=== PATIENT | female | born 1955 | race Caucasian/White ===

== ENCOUNTER → 2024-01-16 | Outpatient (CLI) | payer MEDICARE, SELFPAY ==
--- NOTE | 2024-01-16 16:41 | CT_ITS ---
STUDY: CT ABDOMEN AND PELVIS WITHOUT CONTRAST REASON FOR EXAM: Female, 68 years old. URETERAL STONE, FLANK PAIN. Known kidney stones. Recurrent UTIs. RADIATION DOSAGE (If Supplied By Facility): CTDIvol = ( 23.6 ) mGy, DLP = ( 1184.98 ) mGycm TECHNIQUE: Transaxial images were obtained from the dome of the diaphragm to the symphysis pubis without oral contrast, and without intravenous contrast. Sagittal and coronal images were reconstructed. Individualized dose optimization techniques were used for this CT. COMPARISON: None. FINDINGS: Calcified granuloma in the right lower lobe. The visualized portions of the heart are within normal limits. There is decreased attenuation of the liver consistent with steatosis. Normal gallbladder and extrahepatic biliary system. Normal spleen. Normal pancreas. Normal bilateral adrenal glands. There is a 3.8 cm x 3 cm cyst in the upper midportion of the right kidney. Normal left kidney. There is an 8.3 mm calculus in the distal portion of the left ureter just proximal to the left ureterovesical junction. Normal visualized stomach. Normal small intestine. Normal colon. There are surgical clips in the region of the appendix consistent with a prior appendectomy. There is scattered atherosclerotic calcification of the abdominal aorta, without a demonstrated aneurysm. Normal inferior vena cava. Normal retroperitoneum. Normal urinary bladder. Calcified fibroid uterus. Normal abdominal wall. Disc space narrowing and disc degeneration at the L5-S1 level. Calcified right lower lobe granuloma. CT/Abdomen/Pelvis without Cont IMPRESSION: Fatty infiltration of the liver. Right renal cyst. 8.3 mm calculus in the distal portion of the left ureter just proximal to the ureterovesical junction. Electronically Signed: Morgan Rod MD at 10:27 EDT ,
== END | disposition home or self-care (01) ==
PROVIDERS: Referring Provider Urology; Visit Provider Urology
DX: R10.9 Unspecified abdominal pain (principal); N20.1 Calculus of ureter
CPT/HCPCS: 74176

== ENCOUNTER 2024-02-22 08:45 | Day surgery (SDC) | payer MEDICARE, SELFPAY ==
--- NOTE | 2024-02-22 | CALC_PTH ---
PATIENT: STEFANY VAZQUEZ LOC: [facility] U#:[id number] AGE/SX: 68/F ROOM: RE02/22/[address]: Dr. Maricruz Plummer MD : 1955 BED: DIS: 02/22/2024 SPEC #: [id number] RECD: 02/22/24 11:08 STATUS: MACHO JOSE #: [id number] VANESSA: 02/22/24 00:[address]: Maricruz Plummer DEPT: SURGICAL PATHOLOGY RECD BY: Isabel Thompson ENTERED: 02/22/24 11:17 SP TYPE: Calculi OTHR DR: Odalys Arenas, INDUSTRIAL TRAINING SPECIALIST-Aiden Tissues: CALCULI Procedures: Surgery Specimen Level I HEADER OPERATION: Left ureteroscopy, laser lithotripsy, stone basket extraction PRE-OP DIAGNOSIS: Ureteral calculi TISSUE SUBMITTED: Left ureteral calculi GROSS DIAGNOSIS Fragments of stone clinically left ureteral calculi. CHERYL/ 02/22/2024 COMMENT The calculi are submitted in its entirety for chemical stone analysis. The results from this study will be reported separately. GROSS DESCRIPTION Received without fixative labeled with the patient's name and designated Left ureteral calculi. The specimen consists of multiple fragments of brown stone measuring in aggregate 0.7 x 0.2 x 0.2 cm. The entire specimen is submitted for stone analysis. CHERYL/ 02/22/2024 CPT: 69878
--- NOTE | 2024-02-22 09:06 | PCM.PRE.AN2 ---
ASA Classification* ASA Classification ASA Classification: 2 Assessment & Plan Anesthesia* Anesthesia Assessment Anesthesia Assessment: Discussed sedation and/or anesthesia options, risks, benefits, and alternatives with patient/parents/legal guardian/POA. Questions invited. The patient/parents/legal guardian/POA seems to understand and agrees to proceed with anesthesia plan. Reviewed the physical assessment, medical history, allergy history and patient home medications list prior to surgery/procedure/anesthetic and documented any changes. Performed airway and anesthesia risk assessments. Anesthesia Type Anesthesia Type: General Anesthesia Focused Assessment* Airway Assessment Mouth opens: >3 cm Mallampati Score: II Focused Labs Anesthesia Preop lab: CBC CHEMISTRY COAG Pre-Assessment Diagnosis/Proposed Procedure Planned Operative Procedure(s): (L) Cysto, Left ureteroscopy, laser litho, stone basket extraction, left ureteral stent Anesthesia History Anesthesia History - outside event sales specialist: Anesthesia History - outside event sales specialist Hx Hospitalization No 02/08/24 15:15 Any Problems With Anesthesia No 02/08/24 15:15 Cholinesterase deficiency No 02/08/24 15:15 You/Your Family Experience No 02/08/24 15:15 fever (hyperthermia) with Relationship Recent Exposure to Contagious Disease Does patient have nerve No 02/08/24 15:15 stimulator Patient instructed to have device shut off --Does patient have Pacemaker or ICD? When Was Last Pacemaker Check QUESTION #4 FULL TEXT: You/Your Family Experience fever (hyperthermia) with Anesthesia Last Oral Intake Last Oral intake: Last Oral Intake NPO since Meds taken in AM with sips of water? Meds patient instructed to take am of surgery PONV PONV - outside event sales specialist: PONV - outside event sales specialist Female Yes 02/08/24 15:15 HX of Motion Sickness No 02/08/24 15:15 HX of N/V After Surgery No 02/08/24 15:15 Non-Smoker Yes 02/08/24 15:15 Duration of Surgery greater No 02/08/24 15:15 than 60 minutes Number of Risk Factors 2 02/08/24 15:15 PONV Score Moderate Risk 02/08/24 15:15 Respiratory Assessment Respiratory Assessment - outside event sales specialist: Respiratory Tract Infection Hx - outside event sales specialist Hx Respiratory Tract Infection No 02/08/24 15:15 STOP Sleep Apnea STOP Sleep Apnea - outside event sales specialist: STOP Sleep Apnea - outside event sales specialist Hx Hypertension No 02/08/24 15:15 Hx Sleep Apnea No 02/08/24 15:15 CPAP BIPAP Do you snore loudly (louder No 02/08/24 15:15 than talking or can be heard Do you often feel tired/ No 02/08/24 15:15 fatigued/ sleepy during daytime? Has anyone observed you stop No 02/08/24 15:15 breathing during sleep? STOP Results Negative 02/08/24 15:15 QUESTION #5 FULL TEXT : Do you snore loudly (louder than talking or can be heard through closed doors)? 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 Specify any problems Hx of Preganancy in last 3 No 02/08/24 15:15 Months Nurse Filling Out Transfusion [facility] 02/08/24 15:15 & Questions: Date: 02/08/24 02/08/24 15:15 Time: 15:22 02/08/24 15:15 Patient unable to answer at this time (ie. confused, unrespo /Reproduction History /Reproductive History - outside event sales specialist: /Reproductive Hx- outside event sales specialist Hx Now No 02/08/24 15:15 Gestational Age (in weeks): EDC: Hx Hx Para Hx Section SAB Active Medications Active Medications: Current Medications Generic Name Dose Route Start Last Admin Trade Name Freq PRN Reason Stop Dose Admin Cefazolin Sodium 2 gm/ Sodium 110 mls @ 150 mls/hr 02/22/24 10:50 Chloride IV 02/22/24 11:33 PREOP ONE Lactated Ringer's 1,000 mls @ 15 mls/hr 02/22/24 09:15 IV .Q48H RADN PFSH Medical History Thyroid disease Arthritis High cholesterol Former smoker History of edema Home Medications ?Medication ?Instructions ?Recorded ?Last Taken ?Type Lactobacillus acidophilus 10 100 mmu cells PO DAILY 02/08/24 Unknown History billion cell capsule (Probiotic) antiarthritic combination no.2 900 900 mg PO DAILY 02/08/24 Unknown History mg tablet (glucosamine-chondroitin) atorvastatin 20 mg tablet 20 mg PO DAILY 02/08/24 Unknown History nlrgxvn-sqxbfresb-bmml 333 mg-133 1 tab PO DAILY 02/08/24 Unknown History mg-8.3 mg tablet cholecalciferol (vitamin D3) 125 125 mcg PO DAILY 02/08/24 Unknown History mcg (5,000 unit) tablet (Vitamin D3) fexofenadine 180 mg tablet 180 mg PO DAILY 02/08/24 Unknown History (Tiera Allergy) levothyroxine 125 mcg tablet 125 mcg PO DAILY 02/08/24 Unknown History omega 3 350 mg-dha 235 mg-epa 90 2 cap PO DAILY 02/08/24 Unknown History mg-fish oil 597 mg capsule,delay rel ([place]-3) Allergy/AdvReac Type Severity Reaction Status Date / Time No Known Allergies Allergy Verified 02/08/24 15:09 Surgical History History of bilateral cataract extraction History of tubal ligation History of appendectomy History of knee replacement procedure of right knee Social History Smoking Status: Former smoker Review of Systems (Anesthesia) ROS Narrative System reviewed and no additional complaints, except as documented.
[2024-02-22 09:21] VITALS: BP 155/80; PULSE 70; RESP 16; TEMP 36.3; O2SAT 100; BMI 41.5
[2024-02-22] MEDS: Lactated Ringers 1,000 ML 15 ML IV (09:24)
[2024-02-22 09:25] LABS: Hematocrit 39.4 % (37-47); Hemoglobin 13.3 g/dL (12.0-15.0); Mean Corp Hgb Conc 33.8 g/dL (32-36); Mean Corpuscular Hgb 31.4 pg (27.0-32.0); Mean Corpuscular Volume 92.9 fL (81-99); Platelet Count 250 K/mm3 (150-450); Red Blood Count 4.24 M/mm3 (4.2-5.4); White Blood Count 4.6 K/mm3 (4.4-11.0)
--- NOTE | 2024-02-22 09:57 | EX.PCM.DISCH ---
Discharge Instructions Diet Discharge Diet: No restrictions Activity Discharge Activity: Return to Normal Activity Dressing / Incision Call your doctor if you observe: Fever of 101 or Higher, Inability to urinate and Inability to have a bowel movement Follow Up Care Please Follow Up With: Maricruz Plummer MD When: The office will call her to make follow up arrangements. Test Results: Test results from this visit will be discussed in further detail at your follow-up appointment, if applicable. Discharge Plan Admission Attending Provider: Maricruz Plummer Primary Care Provider: Odalys Arenas NP Instructions Print Language: Spanish Discharge Orders/Prescriptions Prescriptions: New oxycodone-acetaminophen [Percocet] 5-325 mg tablet 1 tab PO Q8H PRN (Reason: pain) 3 Days Qty: 10 0RF cephalexin 500 mg capsule 500 mg PO Q12 3 Days Qty: 6 0RF ondansetron 4 mg tablet,disintegrating 4 mg PO Q8H PRN (Reason: nausea and vomiting) Qty: 10 0RF phenazopyridine [Pyridium] 200 mg tablet 200 mg PO TID PRN PRN (Reason: Bladder Spasms) 7 Days Qty: 30 3RF Continued atorvastatin 20 mg tablet 20 mg PO DAILY levothyroxine 125 mcg tablet 125 mcg PO DAILY fexofenadine [Tiera Allergy] 180 mg tablet 180 mg PO DAILY cholecalciferol (vitamin D3) [Vitamin D3] 125 mcg (5,000 unit) tablet 125 mcg PO DAILY glucosamine-chondroitin 900 mg tablet 900 mg PO DAILY [place]-3 350 mg-235 mg- 90 mg-597 mg capsule,delayed release(DR/EC) 2 cap PO DAILY gqqmfsr-brkemlwjo-vmip 333-133-8.3 mg tablet 1 tab PO DAILY Probiotic 10 billion cell capsule 100 mmu cells PO DAILY [facility]: [facility] - Disposition Disposition (needs filled in before D/C Order can be placed): Home, Self Care
[2024-02-22] MEDS: Cefazolin 2 GM in 0.9% Normal Saline (100mL Bag) 100 ML IV (09:58)
[2024-02-22 09:59] LABS: Anion Gap 4 (5-15); BUN 17 mg/dL (7-18); BUN/Creat Ratio 18.9 RATIO (10-20); Calcium,Total 9.2 mg/dL (8.5-10.1); Chloride 108 mmol/L (98-107); EST Glomerular Filtration Rate 66 mL/min (>60); Est Glom Filt Rate - Afr Amer 80 mL/min (>60); Glucose 110 mg/dL (74-106); Potassium 3.8 mmol/L (3.5-5.1); Sodium Level 140 mmol/L (136-145)
--- NOTE | 2024-02-22 10:02 | PRE.ANES_ITS ---
ASA Classification* ASA Classification ASA Classification: 3 Assessment & Plan Anesthesia* Anesthesia Assessment Anesthesia Assessment: Discussed sedation and/or anesthesia options, risks, benefits, and alternatives with patient/parents/legal guardian/POA. Questions invited. The patient/parents/legal guardian/POA seems to understand and agrees to proceed with anesthesia plan. Reviewed the physical assessment, medical history, allergy history and patient home medications list prior to surgery/procedure/anesthetic and documented any changes. Performed airway and anesthesia risk assessments. Anesthesia Type Anesthesia Type: MAC (GA bkup) Anesthesia Focused Assessment* Temperature: 97.4 F Pulse Rate: 70 Blood Pressure: 155/80 Respiratory Rate: 16 Pulse Ox: 100 Airway Assessment Mouth opens: >3 cm Mallampati Score: II Focused Labs Anesthesia Preop lab: CBC WBC 4.6 K/mm3 (4.4-11.0) 02/22/24 09:07 02/22/24 RBC 4.24 M/mm3 (4.2-5.4) 02/22/24 09:07 02/22/24 Hgb 13.3 g/dL (12.0-15.0) 02/22/24 09:07 02/22/24 Hct 39.4 % (37-47) 02/22/24 09:07 02/22/24 Plt Count 250 K/mm3 (150-450) 02/22/24 09:07 02/22/24 CHEMISTRY Potassium 3.8 mmol/L (3.5-5.1) 02/22/24 09:07 02/22/24 Sodium 140 mmol/L (136-145) 02/22/24 09:07 02/22/24 BUN 17 mg/dL (7-18) 02/22/24 09:07 02/22/24 Creatinine 0.75 mg/dL (0.55-1.02) 04/02/24 09:02 04/02/24 Glucose 110 mg/dL (74-106) H 02/22/24 09:07 02/22/24 COAG Pre-Assessment Diagnosis/Proposed Procedure Planned Operative Procedure(s): (L) Cysto, Left ureteroscopy, laser litho, stone basket extraction, left ureteral stent Anesthesia History 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 When Was Last Pacemaker Check QUESTION #4 FULL TEXT: You/Your Family Experience fever (hyperthermia) with Anesthesia Last Oral Intake Last Oral intake: Last Oral Intake NPO since 08:30 02/22/24 09:21 Meds taken in AM with sips of No 02/22/24 09:21 water? Meds patient instructed to take am of surgery PONV PONV - junior mechanical engineer: PONV - junior mechanical engineer Female Yes 02/08/24 15:15 HX of Motion Sickness No 02/08/24 15:15 HX of N/V After Surgery No 02/08/24 15:15 Non-Smoker Yes 02/08/24 15:15 Duration of Surgery greater No 02/08/24 15:15 than 60 minutes Number of Risk Factors 2 02/08/24 15:15 PONV Score Moderate Risk 02/08/24 15:15 Height & Weight Height & Weight: Anesthesia: Height & Weight Height 5 ft 7.5 in 02/22/24 09:21 Weight: 122 kg 02/22/24 09:21 Body Mass Index (BMI) 41.5 02/22/24 09:21 Respiratory Assessment Respiratory Assessment - junior mechanical engineer: Respiratory Tract Infection Hx - junior mechanical engineer Hx Respiratory Tract Infection No 02/08/24 15:15 STOP Sleep Apnea STOP Sleep Apnea - junior mechanical engineer: STOP Sleep Apnea - junior mechanical engineer Hx Hypertension No 02/08/24 15:15 Hx Sleep Apnea No 02/08/24 15:15 CPAP BIPAP Do you snore loudly (louder No 02/08/24 15:15 than talking or can be heard Do you often feel tired/ No 02/08/24 15:15 fatigued/ sleepy during daytime? Has anyone observed you stop No 02/08/24 15:15 breathing during sleep? STOP Results Negative 02/08/24 15:15 QUESTION #5 FULL TEXT : Do you snore loudly (louder than talking or can be heard through closed doors)? 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 Specify any problems Hx of Preganancy in last 3 No 02/08/24 15:15 Months Nurse Filling Out Transfusion [facility] 02/08/24 15:15 & Questions: Date: 02/08/24 02/08/24 15:15 Time: 15:22 02/08/24 15:15 Patient unable to answer at this time (ie. confused, unrespo /Reproduction History /Reproductive History - junior mechanical engineer: /Reproductive Hx- junior mechanical engineer Hx Now No 02/08/24 15:15 Gestational Age (in weeks): EDC: Hx Hx Para Hx Section SAB Active Medications Active Medications: Current Medications Generic Name Dose Route Start Last Admin Trade Name Freq PRN Reason Stop Dose Admin Cefazolin Sodium 2 gm/ Sodium 110 mls @ 150 mls/hr 02/22/24 10:50 Chloride IV 02/22/24 11:33 PREOP ONE Lactated Ringer's 1,000 mls @ 15 mls/hr 02/22/24 09:15 02/22/24 09:24 IV 15 mls/hr .Q48H RAND Administration PFSH Medical History (Updated 02/22/24 @ 10:[address] Maricruz Plummer MD) Ureteral calculus Thyroid disease Arthritis High cholesterol Former smoker History of edema Home Medications ?Medication ?Instructions ?Recorded ?Last Taken ?Type Lactobacillus acidophilus 10 100 mmu cells PO DAILY 02/21/24 History billion cell capsule (Probiotic) antiarthritic combination no.2 900 900 mg PO DAILY 06/2302/21/24 History mg tablet (glucosamine-chondroitin) atorvastatin 20 mg tablet 20 mg PO DAILY 02/08/2401/29 History vravrwm-miqsycjdd-vlvd 333 mg-133 1 tab PO DAILY 02/0702/21/24 History mg-8.3 mg tablet cholecalciferol (vitamin D3) 125 125 mcg PO DAILY 01/2802/21/24 History mcg (5,000 unit) tablet (Vitamin D3) fexofenadine 180 mg tablet 180 mg PO DAILY 02/08/24 History (Tiera Allergy) levothyroxine 125 mcg tablet 125 mcg PO DAILY 02/08/24 02/21/24 History omega 3 350 mg-dha 235 mg-epa 90 2 cap PO DAILY 02/21/24 History mg-fish oil 597 mg capsule,delay rel ([place]-3) cephalexin 500 mg capsule 500 mg PO Q12 post-operative 3 02/22/24 Unknown Rx days #6 CAPSULES ondansetron 4 mg disintegrating 4 mg PO Q8H PRN nausea and 02/22/24 Unknown Rx tablet vomiting #10 tabs oxycodone-acetaminophen 5 mg-325 1 tab PO Q8H PRN pain 3 days #10 02/22/24 Unknown Rx mg tablet (Percocet) tabs phenazopyridine 200 mg tablet 200 mg PO TID PRN PRN Bl adder 02/22/24 Unknown Rx (Pyridium) Spasms 7 days #30 tabs Allergy/AdvReac Type Severity Reaction Status Date / Time No Known Allergies Allergy Verified 02/22/24 09:20 Surgical History History of bilateral cataract extraction History of tubal ligation History of appendectomy History of knee replacement procedure of right knee Social History Smoking Status: Former smoker Review of Systems (Anesthesia) ROS Narrative System reviewed and no additional complaints, except as documented.
--- NOTE | 2024-02-22 10:02 | PCM.OPRPT ---
Report of Operation Date of Procedure: 02/22/24 Pre-Operative Diagnosis: left ureteral stone Post-Operative Diagnosis: same Surgery/Procedure Performed:: Cystoscopy, left ureteroscopy, laser lithotripsy, stone basket extraction, left ureteral stent insertion Surgeon: Maricruz Plummer Type of Anesthesia: General Specimen's removed: Ureteral stone fragments Description of Procedure: The patient is a 68-year-old female diagnosed with a large distal left ureteral calculus who presents for surgical intervention. Informed consent was obtained. The patient was taken to the operating room and placed on the operating room table. Anesthesia monitored the head, neck, airway, IV access and vital signs throughout the case. Once anesthesia was appropriately administered, she was placed into dorsolithotomy position was prepped and draped in usual sterile fashion. The cystoscope was inserted through the urethra under direct visualization into the urinary bladder. The mucosa was visualized in its entirety finding no evidence of mass, ulceration or foreign body. The left ureter was then gently intubated with a 0.035 Glidewire which was unable to pass beyond the stone initially. The semirigid ureteroscope was then placed into the distal ureter and a narrowing was visualized just before the stone. A 0.035 Glidewire was passed through the ureteroscope and then easily seen in the renal pelvis. The ureteroscope was removed leaving the wire in place. A second wire, 0.025 was used through the ureteroscope in order to gain access to the stone. The stone was quite large and the laser was utilized to break the stone into multiple small pieces which were removed with the basket. At this time, ureteroscopy and direct visualization of the ureter revealed no evidence of injury. The ureter was edematous in the area where the stone was lodged. The safety wire was then utilized to place a 4.5 [place] by 28 cm JJ stent with good positioning in the renal pelvis as well as the urinary bladder. Her bladder was emptied and the scope was removed. She was awakened and taken to the recovery room in good condition. There were no complications during this procedure. Grafts/Implants Used: 4.5 [place] by 28 cm JJ stent Complications None Admit VTE Documentation VTE Present on Admission: Yes VTE Mechan Device Prophylaxis: SCD's VTE Pharm Prophylaxis ordered?: No Reason prophylaxis not ordered:: Treatment Not Indicated
[2024-02-22 10:57] VITALS: BP 124/57; BP 155/80; PULSE 66; RESP 16; TEMP 36.9; O2SAT 94
--- NOTE | 2024-02-22 10:57 | PCM.POST.ANE ---
Anesthesia: Postop Eval I Current Vital Signs Temperature: 98.4 F Pulse Rate: 69 Blood Pressure: 124/57 Respiratory Rate: 16 Pulse Ox: 94 Oxygen Delivery Method: Room Air Assessment Airway patent: Yes Spontaneous unlabored respirations: Yes Mental status: Awake and Calm nausea: No Vomiting: No Anesthesia Complication: No Fluid Hydration Crystalloid volume administer (ml): 700 Total IV fluid infused: 700 Progress Note Anesthesia document: Postop Eval 1 completed: Yes
[2024-02-22 11:00] VITALS: BP 124/57; BP 136/68; BP 155/80; PULSE 67; PULSE 69; RESP 16; RESP 18; TEMP 36.9; O2SAT 92; O2SAT 94
[2024-02-22 11:05] VITALS: BP 130/63; BP 155/80; PULSE 70; RESP 18; O2SAT 96
[2024-02-22 11:10] VITALS: BP 118/51; BP 155/80; PULSE 71; RESP 18; TEMP 36.9; O2SAT 96
[2024-02-22 11:37] VITALS: BP 155/80
--- NOTE | 2024-02-22 13:47 | POSTOPAN2_ITS ---
Anesthesia Postop Eval I Sum Postop Eval Completion status Anesthesia document: Postop Eval 1 completed: Yes Anesthesia Postop Eval I Summary Anesthesia Postop Eval I Summary: Anesthesia Postop Eval I: Assessment Summary Airway patent Yes 02/22/24 11:00 DIRECTOR OF REIMBURSEMENT.[email or web address] Spontaneous unlabored Yes 02/22/24 11:00 DIRECTOR OF REIMBURSEMENT.GDOTT respirations Mental status Awake,Calm 02/22/24 11:00 DIRECTOR OF REIMBURSEMENT.GDOTT nausea No 02/22/24 11:00 DIRECTOR OF REIMBURSEMENT.GDOTT Vomiting No 02/22/24 11:00 DIRECTOR OF REIMBURSEMENT.GDOTT Anesthesia Postop Eval I: Fluid Summary Crystalloid volume administer 700 02/22/24 11:00 DIRECTOR OF REIMBURSEMENT.GDOTT (ml) Colloids volume administered ( ml) Blood Product volume administered (ml) Total IV fluid infused 700 02/22/24 11:00 DIRECTOR OF REIMBURSEMENT.GDOTT Anesthesia Postop Eval I: Summary Notes Anesthesia Complication No 02/22/24 11:00 DIRECTOR OF REIMBURSEMENT.GDOTT Anesthesia Complication Comment: Post-operative progress note Anesthesia: Postop Eval II Evaluation Mental status: Awake and Calm Pain Level: 1 nausea: No Vomiting: No
--- NOTE | 2024-02-22 13:47 | PCM.POSTANE2 ---
Anesthesia Postop Eval I Sum Postop Eval Completion status Anesthesia document: Postop Eval 1 completed: Yes Anesthesia Postop Eval I Summary Anesthesia Postop Eval I Summary: Anesthesia Postop Eval I: Assessment Summary Airway patent Yes 02/22/24 11:00 JOB [email or web address] Spontaneous unlabored Yes 02/22/24 11:00 JOB BOSS.[email or web address] respirations Mental status Awake,Calm 02/22/24 11:00 JOB [email or web address].[email or web address] nausea No 02/22/24 11:00 JOB BOSS.GDOTT Vomiting No 02/22/24 11:00 JOB BOSS.[email or web address] Anesthesia Postop Eval I: Fluid Summary Crystalloid volume administer 700 02/22/24 11:00 JOB [email or web address].GDOTT (ml) Colloids volume administered ( ml) Blood Product volume administered (ml) Total IV fluid infused 700 02/22/24 11:00 JOB [email or web address].GDOTT Anesthesia Postop Eval I: Summary Notes Anesthesia Complication No 02/22/24 11:00 JOB BOSS.GDOTT Anesthesia Complication Comment: Post-operative progress note Anesthesia: Postop Eval II Evaluation Mental status: Awake and Calm Pain Level: 1 nausea: No Vomiting: No
== END 2024-02-22 11:38 | disposition home or self-care (01) ==
LOC: SDC 08:50 → AC 08:51
PROVIDERS: PCP Nurse Practitioner Family; Referring Provider Urology; Visit Provider Urology
PROC: 0TJ98ZZ Inspection of Ureter, Via Natural or Artificial Opening Endoscopic (ICD-10-PCS; CPT 52352; principal; 2024-02-22 10:40)
DX: N20.1 Calculus of ureter (principal); E78.00 Pure hypercholesterolemia, unspecified; E07.9 Disorder of thyroid, unspecified; Z79.899 Other long term (current) drug therapy; Z87.891 Personal history of nicotine dependence
CPT/HCPCS: 52356; 00873; 76000; 80048; 82360; 85027; 88300; J7120; J2405

== ENCOUNTER → 2024-04-02 | Outpatient (CLI) | payer MEDICARE, SELFPAY ==
[2024-04-02 10:36] LABS: Creatinine, Serum 0.75 mg/dL (0.55-1.02); EST Glomerular Filtration Rate 81 mL/min (>60); Est Glom Filt Rate - Afr Amer 98 mL/min (>60)
== END | disposition home or self-care (01) ==
LOC: MTLAB 08:58
PROVIDERS: PCP Nurse Practitioner Family; Referring Provider Urology; Visit Provider Urology
DX: E83.52 Hypercalcemia (principal)
CPT/HCPCS: 36415; 82565

== ENCOUNTER 2025-02-10 14:18 | Emergency (ER) | payer MEDICARE, SELFPAY ==
[2025-02-10 14:19] VITALS: BP 133/7; PULSE 66; RESP 18; TEMP 36.8; O2SAT 99; BMI 39.5
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
[2025-02-10 15:47] VITALS: BP 129/71; PULSE 66; RESP 18; TEMP 36.8; O2SAT 99
== END 2025-02-10 15:49 | disposition home or self-care (01) ==
LOC: ED 15:46
PROVIDERS: Emergency Provider Emergency Medicine; PCP Nurse Practitioner Family; Referring Provider Emergency Medicine; Visit Provider Emergency Medicine
DX: S40.012A Contusion of left shoulder, initial encounter (principal); Z87.891 Personal history of nicotine dependence; V89.2XXA Person injured in unspecified motor-vehicle accident, traffic, initial encounter
CPT/HCPCS: 99282